=== PATIENT | female | born 1970 | race Caucasian/White ===

== ENCOUNTER 2020-10-10 10:03 | Day surgery (SDC) | payer BC, SELFPAY ==
[2020-10-10] VITALS (10 sets, daily range): BP systolic 95–126; BP diastolic 60–74
[~2020-10-10] VITALS: Ht 162.6 cm; Wt 94.9 kg
[~2020-10-10 10:03] MED LIST: APIX5TAB3 PO
[2020-10-10] MEDS ORDERED: normal saline 1,000 ML IV SCH (10:35)
[2020-10-10] MEDS ORDERED: diphenhydrAMINE 25mg capsule PO PRN (10:35)
[2020-10-10] MEDS ORDERED: INDLA60C PO (10:40)
[2020-10-10] MEDS ORDERED: MAGN400T39 PO (10:40)
[2020-10-10] MEDS ORDERED: FURO20TA4 PO (10:40)
[2020-10-10] MEDS ORDERED: MV-M1TAB19 PO (10:40)
[2020-10-10] MEDS ORDERED: SUMA100T16 PO (10:40)
[2020-10-10] MEDS ORDERED: CETI10CA PO (10:40)
[2020-10-10] MEDS ORDERED: POTA10TA36 PO (10:40)
[2020-10-10] MEDS ORDERED: RIVA20TA PO (10:40)
[2020-10-10 10:57] LABS: BASOPHILS # (AUTO) 0.1 X10'3 (0-0.2); BASOPHILS % (AUTO) 0.8 % (0-1); EOSINOPHILS # (AUTO) 0.1 X10'3 (0-0.9); EOSINOPHILS % (AUTO) 1.6 % (0-6); HEMATOCRIT 40.4 % (35.0-45.0); HEMOGLOBIN 13.7 g/dl (12.0-16.0); LYMPHOCYTES # (AUTO) 2.5 X10'3 (1.1-4.8); LYMPHOCYTES % (AUTO) 30.3 % (21-51); MEAN CORPUSCULAR HGB CONC 33.8 g/dL (33.0-36.5); MEAN CORPUSCULAR VOLUME 91.5 FL (78-98); MEAN PLATELET VOLUME 8.6 FL (7.4-10.4); MONOCYTES # (AUTO) 0.4 X10'3 (0-0.9); MONOCYTES % (AUTO) 4.6 % (2-12); NEUTROPHILS # (AUTO) 5.2 X10'3 (1.8-7.7); NEUTROPHILS % (AUTO) 62.7 % (42-75); PLATELET COUNT 215 X10'3 (140-440); RED BLOOD COUNT 4.41 X10'6 (4.20-5.60); RED CELL DISTRIBUTION WIDTH 14.1 % (11.5-14.5); WHITE BLOOD COUNT 8.3 X10'3 (4.5-11.0)
[2020-10-10 11:12] LABS: ALBUMIN 3.8 G/DL (3.4-5.0); ANION GAP 7 (8-16); BLOOD UREA NITROGEN 12 MG/DL (7-18); BUN/CREATININE RATIO 18.2 (6.6-38.0); CALCIUM 9.2 MG/DL (8.5-10.1); CHLORIDE 104 MMOL/L (99-107); CREATININE 0.66 MG/DL (0.40-0.90); GLUCOSE 95 MG/DL (70-104); MAGNESIUM 1.8 MG/DL (1.5-2.4); POTASSIUM 3.9 MMOL/L (3.5-5.1); SODIUM 138 MMOL/L (135-145); TOTAL CARBON DIOXIDE 27.5 MMOL/L (24-32); eGFR > 90 ML/MIN
[2020-10-10] MEDS ORDERED: heparin 1,000unit/ml 10ml vial 10 ML ONE (13:36)
[2020-10-10] MEDS ORDERED: iohexol 350MG/ML 100ml bottle IV ONE (13:36)
[2020-10-10] MEDS ORDERED: iohexol 350 MG/ML 50ML vial IV ONE (13:36)
[2020-10-10] MEDS ORDERED: fentaNYL/PF 50MCG/1 ML 2ML syringe ONE (13:36)
[2020-10-10] MEDS ORDERED: LIDOcaine 1% (10mg/ml)w/preservative injection 20ml MDV ONE (13:36)
[2020-10-10] MEDS ORDERED: midazolam 2 mg/2 ml injection ONE ×2 (13:36→14:15)
[2020-10-10] MEDS ORDERED: proCHLORperazine 10 MG/2 ml inj ONE (14:08)
[2020-10-10] MEDS ORDERED: ondansetron/PF 4mg/2ml inj IV PRN (15:15)
[2020-10-10] MEDS ORDERED: proCHLORperazine 10 MG/2 ml inj IV PRN (15:15)
[2020-10-10] MEDS ORDERED: HYDROcodone/acetaminophen 5mg/325mg tablet PO PRN (15:15)
[2020-10-10] MEDS ORDERED: HYDROcodone/acetaminophen 10/325mg tab PO PRN (15:15)
[2020-10-10] MEDS ORDERED: acetaminophen 325mg tablet PO PRN (15:15)
== END 2020-10-10 18:45 | disposition home or self-care (01) ==
LOC: SSTAY O 10:03
PROVIDERS: ATTEND Internal Medicine Cardiovascular Disease
DX: R94.39 Abnormal result of other cardiovascular function study (principal); R07.89 Other chest pain; I25.10 Atherosclerotic heart disease of native coronary artery without angina pectoris; G43.801 Other migraine, not intractable, with status migrainosus; Z79.899 Other long term (current) drug therapy; Z86.711 Personal history of pulmonary embolism; Z86.718 Personal history of other venous thrombosis and embolism; Z90.710 Acquired absence of both cervix and uterus; Z72.89 Other problems related to lifestyle; Z88.5 Allergy status to narcotic agent; Z95.5 Presence of coronary angioplasty implant and graft; Z82.3 Family history of stroke; Z82.49 Family history of ischemic heart disease and other diseases of the circulatory system; Z83.49 Family history of other endocrine, nutritional and metabolic diseases
CPT/HCPCS: 36415; 80048; 83735; 85025; 85610; 93005; 93460; 99152; C1760; C1769; C1894; J0780; J1644; J2001; J2250; J2405; J3010; J7030; Q0163; Q9967; 99153; A4620; A6258; C1751